=== PATIENT | male | born 1975 | race Two or more races ===

== ENCOUNTER 2022-10-14 11:55 | Emergency (ER) | payer OTHER ==
[~2022-10-14] VITALS: Ht 175.3 cm; Wt 116.1 kg
[2022-10-14] MEDS ORDERED: ANTIVERT25 M2 PO (13:16)
== END 2022-10-14 19:09 | disposition home or self-care (01) ==
LOC: ER 11:55
PROVIDERS: Nurse Practitioner Family
DX: H81.10 Benign paroxysmal vertigo, unspecified ear (principal)